=== PATIENT | male | born 1960 | race African-American/Black ===

== ENCOUNTER 2019-04-06 07:53 | Emergency (ER) | payer MEDICAID ==
[~2019-04-06] VITALS: Ht 193 cm; Wt 145.0 kg
[2019-04-06 07:59] VITALS: BP 147/86
[2019-04-06 08:57] LABS: BASOPHILS % 0.6 % (0.0-2.0); EOSINOPHILS % 5.6 % (0.0-5.0); HEMATOCRIT. 41.3 % (42.0-52.0); LYMPHOCYTES % 39.1 % (20.0-50.0); MEAN CORPUSCULAR HEMOGLOBIN 28.5 pg (28.0-32.0); MEAN CORPUSCULAR VOLUME 84.4 fL (80.0-94.0); MEAN PLATELET VOLUME 8.2 fl (7.4-10.4); MONOCYTES % 8.3 % (2.0-8.0); NEUTROPHILS % 46.4 % (40.0-76.0); PLATELET 233 x1000/uL (130-400); RED BLOOD CELL COUNT 4.89 mill/uL (4.7-6.1); RED CELL DISTRIBUTION WIDTH 15.8 % (11.6-14.6)
[2019-04-06 09:02] LABS: CHLORIDE 104 mEq/L (98-107)
== END 2019-04-06 09:24 | disposition home or self-care (01) ==
LOC: ER 07:53
DX: B35.4 Tinea corporis (principal); R05 Cough
CPT/HCPCS: 36415; 71045; 80048; 83880; 99284

== ENCOUNTER 2019-05-17 14:36 | Emergency (ER) | payer MEDICAID ==
[~2019-05-17] VITALS: Ht 193 cm; Wt 143.0 kg
[2019-05-17 14:52] VITALS: BP 139/86
[2019-05-18] MEDS ORDERED: LIDOCAINE HCL/PF 1% 10 MG/ML 5ML VIAL ONE (08:40)
[2019-05-18] MEDS ORDERED: ROCURONIUM BROMIDE 10MG/ML VIAL 5ML IV ONE (08:40)
[2019-05-18] MEDS ORDERED: PROPOFOL 200MG/20ML VIAL IV ONE (08:40)
[2019-05-18] MEDS ORDERED: FENTANYL CITRATE/PF 50MCG/ML 2ML VIAL ONE (08:44)
[2019-05-18] MEDS ORDERED: MIDAZOLAM HCL 2 MG/2 ML VIAL ONE (08:44)
[2019-05-18] MEDS ORDERED: HYDRALAZINE 20MG/ML VIAL ONE (08:47)
== END 2019-05-17 16:15 | disposition home or self-care (01) ==
LOC: ER 14:36
DX: L50.9 Urticaria, unspecified (principal); B35.6 Tinea cruris; I10 Essential (primary) hypertension; F10.20 Alcohol dependence, uncomplicated; Z98.890 Other specified postprocedural states; Z87.891 Personal history of nicotine dependence; Y90.9 Presence of alcohol in blood, level not specified
CPT/HCPCS: 99282

== ENCOUNTER 2019-10-20 17:38 | Emergency (ER) | payer MEDICAID ==
[~2019-10-20] VITALS: Ht 193 cm; Wt 155.0 kg
[2019-10-20 20:36] VITALS: BP 150/98
[2019-10-22] MEDS ORDERED: PRAZ1CAP2 PO (09:52)
[2019-10-22] MEDS ORDERED: METO1TAB26 PO (09:52)
== END 2019-10-21 00:23 | disposition left against medical advice (07) ==
LOC: ER 17:38
DX: Z53.21 Procedure and treatment not carried out due to patient leaving prior to being seen by health care provider (principal)

== ENCOUNTER 2019-10-21 06:24 | Emergency (ER) | payer MEDICAID ==
[~2019-10-21] VITALS: Ht 188 cm; Wt 116.0 kg
[2019-10-21] MEDS ORDERED: ONDANSETRON HCL 4MG/2ML INJ IV STA (06:43)
[2019-10-21] MEDS ORDERED: MORPHINE SULFATE 4 MG/ML CPJ (NOT FOR IM USE) IV STA (06:43)
[2019-10-21] MEDS ORDERED: SODIUM CHLORIDE 0.9% 1,000 ML IV ONE (06:43)
[2019-10-21 07:15] LABS: BASOPHILS % 0.6 % (0.0-2.0); HEMATOCRIT. 40.4 % (42.0-52.0); HEMOGLOBIN. 13.5 g/dL (14.0-18.0); LYMPHOCYTES % 34.8 % (20.0-50.0); MEAN CORPUSCULAR VOLUME 86.8 fL (80.0-94.0); MEAN PLATELET VOLUME 8.4 fl (7.4-10.4); MONOCYTES % 7.8 % (2.0-8.0); NEUTROPHILS % 52.8 % (40.0-76.0); PLATELET 295 x1000/uL (130-400); RED BLOOD CELL COUNT 4.66 mill/uL (4.7-6.1); RED CELL DISTRIBUTION WIDTH 14.7 % (11.6-14.6)
[2019-10-21 07:18] LABS: CHLORIDE 106 mEq/L (98-107)
[2019-10-21 07:20] LABS: PARTIAL THROMBOPLASTIN TIME 28.3 sec (23.4-31.0); PROTHROMBIN TIME 10.9 sec (9.6-11.0)
[2019-10-21 08:38] VITALS: BP 138/68
[2019-10-22] MEDS ORDERED: PRAZ1CAP2 PO (09:52)
[2019-10-22] MEDS ORDERED: METO1TAB26 PO (09:52)
== END 2019-10-21 08:40 | disposition home or self-care (01) ==
LOC: ER 06:24
DX: K62.5 Hemorrhage of anus and rectum (principal); K91.840 Postprocedural hemorrhage of a digestive system organ or structure following a digestive system procedure; K64.8 Other hemorrhoids; I10 Essential (primary) hypertension
CPT/HCPCS: 36415; 80053; 83690; 85025; 85610; 85730; 86850; 86900; 86901; 96374; 96375; 99284; J2270; J2405; J7030

== ENCOUNTER 2019-10-21 23:53 | Inpatient (IN) | payer MEDICAID ==
[~2019-10-21] VITALS: Ht 193 cm; Wt 147.4 kg
[2019-10-22] MEDS ORDERED: SODIUM CHLORIDE 0.9% 1,000 ML IV ONE (00:53)
[2019-10-22 01:19] LABS: BASOPHILS % 0.5 % (0.0-2.0); EOSINOPHILS % 2.8 % (0.0-5.0); HEMATOCRIT. 28.7 % (42.0-52.0); LYMPHOCYTES % 27.4 % (20.0-50.0); MEAN CORPUSCULAR HEMOGLOBIN 29.6 pg (28.0-32.0); MEAN CORPUSCULAR VOLUME 85.3 fL (80.0-94.0); MEAN PLATELET VOLUME 7.8 fl (7.4-10.4); MONOCYTES % 9.1 % (2.0-8.0); NEUTROPHILS % 60.2 % (40.0-76.0); PLATELET 261 x1000/uL (130-400); RED BLOOD CELL COUNT 3.37 mill/uL (4.7-6.1); RED CELL DISTRIBUTION WIDTH 14.5 % (11.6-14.6)
[2019-10-22 01:26] LABS: CHLORIDE 106 mEq/L (98-107)
[2019-10-22 01:27] LABS: PROTHROMBIN TIME 11.1 sec (9.6-11.0)
[2019-10-22] MEDS ORDERED: IOHEXOL-300 100 ML BOTTLE ONE (02:54)
[2019-10-22] MEDS ORDERED: ONDANSETRON HCL 4MG/2ML INJ IV PRN (08:15)
[2019-10-22] MEDS ORDERED: ACETAMINOPHEN 325MG TABLET PO PRN (08:15)
[2019-10-22 08:36] LABS: BASOPHILS % 0.7 % (0.0-2.0); HEMATOCRIT. 26.3 % (42.0-52.0); HEMOGLOBIN. 8.9 g/dL (14.0-18.0); LYMPHOCYTES % 28.6 % (20.0-50.0); MEAN CORPUSCULAR HEMOGLOBIN 29.2 pg (28.0-32.0); MEAN CORPUSCULAR VOLUME 86.2 fL (80.0-94.0); MEAN PLATELET VOLUME 8.1 fl (7.4-10.4); MONOCYTES % 8.4 % (2.0-8.0); NEUTROPHILS % 59.3 % (40.0-76.0); PLATELET 248 x1000/uL (130-400); RED BLOOD CELL COUNT 3.06 mill/uL (4.7-6.1); RED CELL DISTRIBUTION WIDTH 14.9 % (11.6-14.6)
[2019-10-22 08:37] LABS: CHLORIDE 109 mEq/L (98-107)
[2019-10-22 08:50] VITALS: BP 143/76
[2019-10-22] MEDS ORDERED: PROTAMINE SULFATE 10MG/ML VIAL 25ML IV ONE (09:00)
[2019-10-22] MEDS ORDERED: PRAZ1CAP2 PO (09:52)
[2019-10-22] MEDS ORDERED: METO1TAB26 PO (09:52)
[2019-10-22 12:00] VITALS: BP 107/65
[2019-10-22] MEDS ORDERED: LACTULOSE 20G/30ML UDC PO PRN (14:00)
[2019-10-22] MEDS: SODIUM CHLORIDE 0.9% 1,000 ML IV SCH ×2 (14:54→17:53)
[2019-10-22] MEDS: DOCUSATE SODIUM 250MG CAPSULE PO SCH ×2 (14:55→20:28)
[2019-10-22] MEDS: PANTOPRAZOLE SODIUM 40 MG/VIAL IV SCH (14:55)
[2019-10-22] MEDS: POLYETHYLENE GLYCOL 3350 (17GM) 1 DOSE PACK PO SCH (14:55)
[2019-10-22 16:00] VITALS: BP 119/81
[2019-10-22 20:00] VITALS: BP 134/71
[2019-10-23] VITALS: BP 96/69
[2019-10-23] MEDS: SODIUM CHLORIDE 0.9% 1,000 ML IV SCH ×2 (01:00→09:25)
[2019-10-23 04:00] VITALS: BP 144/80
[2019-10-23 04:51] LABS: CHLORIDE 109 mEq/L (98-107)
[2019-10-23 06:24] LABS: BASOPHILS % 0.5 % (0.0-2.0); EOSINOPHILS % 4.4 % (0.0-5.0); HEMATOCRIT. 24.1 % (42.0-52.0); HEMOGLOBIN. 8.1 g/dL (14.0-18.0); MEAN CORPUSCULAR VOLUME 86.1 fL (80.0-94.0); MEAN PLATELET VOLUME 8.5 fl (7.4-10.4); NEUTROPHILS % 54.1 % (40.0-76.0); PLATELET 242 x1000/uL (130-400); RED BLOOD CELL COUNT 2.81 mill/uL (4.7-6.1); RED CELL DISTRIBUTION WIDTH 14.8 % (11.6-14.6)
[2019-10-23] MEDS ORDERED: CLONIDINE 0.1MG TABLET PO PRN (07:45)
[2019-10-23 08:00] VITALS: BP 143/88
[2019-10-23] MEDS ORDERED: METOPROLOL PO SCH (09:00)
[2019-10-23] MEDS ORDERED: HYDROCHLOROTHIAZIDE 25MG TABLET PO SCH (09:00)
[2019-10-23] MEDS ORDERED: METOPROLOL TARTRATE 50MG TABLET PO SCH ×2 (09:00)
[2019-10-23] MEDS ORDERED: PRAZOSIN HCL 1MG CAPSULE PO SCH (09:00)
[2019-10-23] MEDS ORDERED: HYDROCHLOROTHIAZIDE PO SCH (09:00)
[2019-10-23] MEDS ORDERED: [UNRECOGNIZED DRUG - OTHER] PO SCH (09:00)
[2019-10-23] MEDS: DOCUSATE SODIUM 250MG CAPSULE PO SCH ×2 (09:16→17:21)
[2019-10-23] MEDS: POLYETHYLENE GLYCOL 3350 (17GM) 1 DOSE PACK PO SCH (09:16)
[2019-10-23] MEDS: PANTOPRAZOLE SODIUM 40 MG/VIAL IV SCH (09:16)
[2019-10-23 11:45] LABS: TOTAL IRON BINDING CAPACITY 200 ug/dL (250-450)
[2019-10-23 12:00] VITALS: BP 127/78
[2019-10-23] MEDS: FERROUS SULFATE 325MG TABLET PO SCH ×2 (13:52→17:21)
[2019-10-23 16:00] VITALS: BP 129/68
[2019-10-23 17:28] VITALS: BP 129/68
== END 2019-10-23 18:00 | disposition home or self-care (01) | DRG 253 ==
LOC: ER 23:53 → 6WST 10-22 03:23 → EDBEDREQTM 10-22 03:25 → EDBEDREQSVC 10-22 03:25 → EDBEDREQ 10-22 03:25 → ENRESERV 10-22 07:32
PROVIDERS: ADMIT Internal Medicine; ATTEND Internal Medicine
DX: K62.5 Hemorrhage of anus and rectum (principal); I10 Essential (primary) hypertension; D62 Acute posthemorrhagic anemia; K57.90 Diverticulosis of intestine, part unspecified, without perforation or abscess without bleeding; Z87.19 Personal history of other diseases of the digestive system; Z87.891 Personal history of nicotine dependence
CPT/HCPCS: 36415; 74177; 80048; 80053; 82728; 83540; 83550; 85025; 86850; 86900; 93005; C9113; J7030; Q9967

== ENCOUNTER 2020-10-29 07:41 | Emergency (ER) | payer MEDICAID ==
[~2020-10-29] VITALS: Ht 193 cm; Wt 145.0 kg
[~2020-10-29 07:41] MED LIST: METO1TAB26 PO; PRAZ1CAP2 PO
[2020-10-29] MEDS ORDERED: MORPHINE SULFATE 10 MG/ML CPJ IM ONE (08:15)
[2020-10-29] MEDS ORDERED: T3 PO (09:45)
[2020-10-29] MEDS ORDERED: IBUP-2029 MT (09:46)
[2020-10-29 09:48] VITALS: BP 105/67
== END 2020-10-29 10:00 | disposition home or self-care (01) ==
LOC: ER 07:41
DX: M25.561 Pain in right knee (principal); I10 Essential (primary) hypertension; Z98.890 Other specified postprocedural states; X50.1XXA Overexertion from prolonged static or awkward postures, initial encounter; Y93.89 Activity, other specified; Y92.488 Other paved roadways as the place of occurrence of the external cause
CPT/HCPCS: 73560; 96372; 99283; J2270; L1830; Z7610

== ENCOUNTER → 2020-12-13 | Outpatient (CLI) | payer MEDICAID ==
[~2020-12-13] MED LIST changes: +IBUP-2029 MT; +T3 PO
== END | disposition home or self-care (01) ==
LOC: LAB 09:43
PROVIDERS: ATTEND Neurological Surgery
DX: Z01.812 Encounter for preprocedural laboratory examination (principal); Z20.822 Contact with and (suspected) exposure to COVID-19
CPT/HCPCS: 87426

== ENCOUNTER → 2020-12-20 | Outpatient (CLI) | payer MEDICAID ==
[~2020-12-20] MED LIST changes: +ASPI-1406 PO; +DOCU-286 PO; +DOXY25TA61 PO; +HYDR25TA PO; +METO-539 PO; +SILD100T69 PO
== END | disposition home or self-care (01) ==
LOC: LAB 06:27
PROVIDERS: ATTEND Neurological Surgery
DX: Z01.812 Encounter for preprocedural laboratory examination (principal); Z20.822 Contact with and (suspected) exposure to COVID-19
CPT/HCPCS: 87426

== ENCOUNTER 2020-12-21 05:12 | Inpatient (IN) | payer MEDICAID ==
[~2020-12-21] VITALS: Ht 193 cm; Wt 155.6 kg
[2020-12-21] VITALS (40 sets, daily range): BP systolic 105–141; BP diastolic 57–84
[~2020-12-21 05:12] MED LIST changes: -ASPI-1406 PO; -DOCU-286 PO; -DOXY25TA61 PO; -HYDR25TA PO; -METO-539 PO; -SILD100T69 PO
[2020-12-21] MEDS ORDERED: SODIUM CHLORIDE 0.9% 1,000 ML IV SCH (06:30)
[2020-12-21] MEDS ORDERED: GENTAMICIN SULF 40MG/ML 2ML VIAL ONE (06:55)
[2020-12-21] MEDS ORDERED: THROMBIN (BOVINE) 5000 UNITS/VIAL TOP ONE (06:55)
[2020-12-21] MEDS ORDERED: ROCURONIUM BROMIDE 10MG/ML VIAL 5ML IV ONE (07:02)
[2020-12-21] MEDS ORDERED: FENTANYL CITRATE/PF 50MCG/ML 2ML VIAL ONE (07:02)
[2020-12-21] MEDS ORDERED: PROPOFOL 200MG/20ML VIAL IV ONE ×2 (07:03→08:58)
[2020-12-21] MEDS ORDERED: NEOSTIGMINE METHYLSULFATE 1MG/ML 10 ML VIAL ONE (07:03)
[2020-12-21] MEDS ORDERED: GLYCOPYRROLATE 0.2 MG/ML 2ML VIAL ONE ×2 (07:03→09:11)
[2020-12-21] MEDS ORDERED: MIDAZOLAM HCL 2 MG/2 ML VIAL ONE (07:03)
[2020-12-21] MEDS ORDERED: DEXAMETHASONE 4MG/ML 1ML VIAL ONE (07:23)
[2020-12-21] MEDS ORDERED: ONDANSETRON HCL 4MG/2ML INJ ONE (07:23)
[2020-12-21] MEDS ORDERED: HYDROMORPHONE HCL/PF 2MG/ML (OR) ONE (07:33)
[2020-12-21] MEDS ORDERED: SILD100T69 PO (08:17)
[2020-12-21] MEDS ORDERED: DOCU-286 PO (08:17)
[2020-12-21] MEDS ORDERED: ASPI-1406 PO (08:17)
[2020-12-21] MEDS ORDERED: METO-539 PO (08:17)
[2020-12-21] MEDS ORDERED: HYDR25TA PO (08:17)
[2020-12-21] MEDS ORDERED: DOXY25TA61 PO (08:17)
[2020-12-21 08:39] LABS: BG BASE EXCESS -0.1 mmol/L (-2.0-2.0); BG CARBOXYHEMOGLOBIN 0.6 % (0.5-1.5); BG DEOXYHEMOGLOBIN 0.4 % (0.0-5.0); BG FRACTION INSPIRED OXYGEN 100; BG HCO3 ACT 26.7 mmol/L (22.0-26.0); BG METHEMOGLOBIN 0.2 % (0.0-1.5); BG OXYGEN SATURATION 99.6 % (92.0-98.5); BG OXYHEMOGLOBIN 98.8 % (94.0-97.0); BG PCO2 52.1 mmHg (35.0-45.0); BG PH 7.327 (7.350-7.450); BG PO2 406.6 mmHg (75.0-100.0); BG SAMPLE SITE ALINE; BG TOTAL HEMOGLOBIN 14.1 g/dL (12.0-18.0); BG VENT MODE VENT - AC
[2020-12-21] MEDS ORDERED: ONDANSETRON HCL 4MG/2ML INJ IV PRN (08:45)
[2020-12-21] MEDS ORDERED: LABETALOL 5MG/ML SYR 20 MG/4 ML SYRINGE IV PRN (08:45)
[2020-12-21] MEDS ORDERED: MEPERIDINE HCL/PF 25MG/ML CPJ IV PRN (08:45)
[2020-12-21] MEDS ORDERED: MORPHINE SULFATE 4 MG/ML CPJ (NOT FOR IM USE) IV PRN (09:15)
[2020-12-21] MEDS: HYDROMORPHONE HCL/PF 2MG/ML CPJ IV PRN ×2 (09:35→09:56)
[2020-12-21] MEDS: DEXT 5%/LACTATED RINGERS 1,000 ML IV SCH ×2 (09:43→20:42)
[2020-12-21] MEDS ORDERED: NALOXONE INJ IV PRN (09:45)
[2020-12-21] MEDS ORDERED: ONDANSETRON INJ IV PRN (09:45)
[2020-12-21] MEDS: NICARDIPINE 100 MG in SODIUM CHLORIDE 0.9% 60 ML IV PRN ×2 (11:17→17:33)
[2020-12-21] MEDS: HYDROMORPHONE PCA 10MG/50ML IV PRN (12:08)
[2020-12-21] MEDS: DEXAMETHASONE 4MG/ML 1ML VIAL IV SCH ×2 (12:08→17:54)
[2020-12-21] MEDS ORDERED: CEFAZOLIN SODIUM 1000MG/VIAL IV SCH (14:00)
[2020-12-21 17:02] LABS: BASOPHILS % 0.3 % (0.0-2.0); HEMATOCRIT. 42.4 % (42.0-52.0); HEMOGLOBIN. 14.2 g/dL (14.0-18.0); LYMPHOCYTES % 8.8 % (20.0-50.0); MEAN CORPUSCULAR HEMOGLOBIN 29.1 pg (28.0-32.0); MEAN CORPUSCULAR VOLUME 87.3 fL (80.0-94.0); MEAN PLATELET VOLUME 8.3 fl (7.4-10.4); MONOCYTES % 1.4 % (2.0-8.0); NEUTROPHILS % 89.5 % (40.0-76.0); PLATELET 250 x1000/uL (130-400); RED BLOOD CELL COUNT 4.86 mill/uL (4.7-6.1); RED CELL DISTRIBUTION WIDTH 13.9 % (11.6-14.6)
[2020-12-21] MEDS: CEFAZOLIN 1000MG PREMIX 50 ML IV SCH (17:54)
[2020-12-21] MEDS: PANTOPRAZOLE SODIUM 40 MG/VIAL IV SCH (21:45)
[2020-12-22] VITALS (86 sets, daily range): BP systolic 55–146; BP diastolic 22–101
[2020-12-22] MEDS: CEFAZOLIN 1000MG PREMIX 50 ML IV SCH ×3 (01:31→17:17)
[2020-12-22] MEDS: DEXT 5%/LACTATED RINGERS 1,000 ML IV SCH ×2 (06:00→15:15)
[2020-12-22] MEDS: DEXAMETHASONE 4MG/ML 1ML VIAL IV SCH ×5 (06:19→23:22)
[2020-12-22] MEDS ORDERED: DIAZEPAM 5 MG TABLET PO NR (08:45)
[2020-12-22] MEDS: PANTOPRAZOLE SODIUM 40 MG/VIAL IV SCH (08:55)
[2020-12-22] MEDS: HYDROCHLOROTHIAZIDE 25MG TABLET PO SCH (08:56)
[2020-12-22] MEDS: METOPROLOL TARTRATE 50MG TABLET PO SCH (08:57)
[2020-12-22] MEDS: PRAZOSIN HCL 1MG CAPSULE PO SCH (09:00)
[2020-12-22] MEDS: DOCUSATE SODIUM 100MG CAPSULE PO SCH ×2 (11:15→17:00)
[2020-12-22] MEDS ORDERED: IPRATROPIUM/ALBUTEROL 0.5-3(2.5)MG/3ML NEB HHN PRN (11:45)
[2020-12-22 15:33] LABS: CLARITY URINE CLEAR (CLEAR); COLOR URINE YELLOW (YELLOW); KETONES URINE NEGATIVE (NEGATIVE); LEUKOCYTE ESTERASE URINE NEGATIVE (NEGATIVE); NITRITE URINE NEGATIVE (NEGATIVE); OCCULT BLOOD URINE 1+ (NEGATIVE); PH URINE 6.5 (4.5-8.0); PROTEIN URINE NEGATIVE (NEGATIVE); SPECIFIC GRAVITY URINE 1.008 (1.005-1.030); UROBILINOGEN URINE 0.2 E.U./dL (0.2-1.0)
[2020-12-22] MEDS ORDERED: DEXTROSE 50% WATER 50ML SYRINGE IV PRN (16:00)
[2020-12-22] MEDS: INSULIN LISPRO 100 UNITS/ML SUBCUT SCH ×2 (16:30→20:34)
[2020-12-22] MEDS ORDERED: INSULIN LISPRO 100 UNITS/ML SUBCUT SCH (16:30)
[2020-12-22] MEDS: BLOOD SUGAR DIAGNOSTIC STRIP TEST SCH ×2 (17:15→20:34)
[2020-12-23] VITALS (56 sets, daily range): BP systolic 114–176; BP diastolic 51–121
[2020-12-23] MEDS: DEXT 5%/LACTATED RINGERS 1,000 ML IV SCH ×3 (01:04→20:18)
[2020-12-23] MEDS: CEFAZOLIN 1000MG PREMIX 50 ML IV SCH ×2 (01:04→09:45)
[2020-12-23 04:49] LABS: HEMATOCRIT. 39.9 % (42.0-52.0); HEMOGLOBIN. 13.2 g/dL (14.0-18.0); MEAN CORPUSCULAR HEMOGLOBIN 28.5 pg (28.0-32.0); MEAN CORPUSCULAR VOLUME 86.3 fL (80.0-94.0); MEAN PLATELET VOLUME 8.8 fl (7.4-10.4); PLATELET 235 x1000/uL (130-400); RED BLOOD CELL COUNT 4.62 mill/uL (4.7-6.1); RED CELL DISTRIBUTION WIDTH 14.2 % (11.6-14.6)
[2020-12-23 04:57] LABS: CHLORIDE 104 mEq/L (98-107)
[2020-12-23] MEDS: BLOOD SUGAR DIAGNOSTIC STRIP TEST SCH ×4 (05:41→20:18)
[2020-12-23] MEDS: DEXAMETHASONE 4MG/ML 1ML VIAL IV SCH ×2 (05:41→11:52)
[2020-12-23] MEDS: INSULIN LISPRO 100 UNITS/ML SUBCUT SCH ×4 (06:15→20:17)
[2020-12-23] MEDS: PANTOPRAZOLE SODIUM 40 MG/VIAL IV SCH (08:26)
[2020-12-23] MEDS: HYDROCHLOROTHIAZIDE 25MG TABLET PO SCH (08:26)
[2020-12-23] MEDS: METOPROLOL TARTRATE 50MG TABLET PO SCH ×2 (08:26→17:30)
[2020-12-23] MEDS: DOCUSATE SODIUM 100MG CAPSULE PO SCH ×2 (08:26→17:29)
[2020-12-23] MEDS: PRAZOSIN HCL 1MG CAPSULE PO SCH (08:26)
[2020-12-23] MEDS: HYDROMORPHONE PCA 10MG/50ML IV PRN (09:36)
[2020-12-23 15:04] LABS: PLATELET ESTIMATE NORMAL
[2020-12-23] MEDS: AMLODIPINE 2.5MG TABLET PO SCH (20:18)
[2020-12-24] VITALS (34 sets, daily range): BP systolic 65–179; BP diastolic 54–107
[2020-12-24 05:09] LABS: BASOPHILS % 0.2 % (0.0-2.0); HEMATOCRIT. 42.4 % (42.0-52.0); HEMOGLOBIN. 13.9 g/dL (14.0-18.0); LYMPHOCYTES % 8.3 % (20.0-50.0); MEAN CORPUSCULAR HEMOGLOBIN 28.6 pg (28.0-32.0); MEAN CORPUSCULAR VOLUME 87.2 fL (80.0-94.0); MEAN PLATELET VOLUME 8.2 fl (7.4-10.4); MONOCYTES % 5.9 % (2.0-8.0); NEUTROPHILS % 85.6 % (40.0-76.0); PLATELET 218 x1000/uL (130-400); RED BLOOD CELL COUNT 4.86 mill/uL (4.7-6.1); RED CELL DISTRIBUTION WIDTH 13.9 % (11.6-14.6)
[2020-12-24] MEDS: METOPROLOL TARTRATE 50MG TABLET PO SCH ×2 (05:11→18:06)
[2020-12-24 05:18] LABS: CHLORIDE 105 mEq/L (98-107)
[2020-12-24] MEDS: INSULIN LISPRO 100 UNITS/ML SUBCUT SCH ×4 (06:04→20:52)
[2020-12-24] MEDS: PANTOPRAZOLE 40MG DR TABLET PO SCH (06:04)
[2020-12-24] MEDS: BLOOD SUGAR DIAGNOSTIC STRIP TEST SCH ×4 (06:04→20:52)
[2020-12-24] MEDS: HYDROCHLOROTHIAZIDE 25MG TABLET PO SCH (09:42)
[2020-12-24] MEDS: AMLODIPINE 2.5MG TABLET PO SCH (09:42)
[2020-12-24] MEDS: PRAZOSIN HCL 1MG CAPSULE PO SCH (09:42)
[2020-12-24] MEDS: DOCUSATE SODIUM 100MG CAPSULE PO SCH ×2 (09:42→16:41)
[2020-12-24] MEDS: HYDROCODONE/ACETAMINOPHEN 5/325MG TABLET PO PRN (11:04)
[2020-12-24] MEDS: BISACODYL 5MG TABLET PO PRN (18:05)
[2020-12-24] MEDS: AMLODIPINE 5MG TABLET PO SCH (20:52)
[2020-12-25] VITALS: BP 123/70
[2020-12-25 04:00] VITALS: BP 122/74
[2020-12-25 06:10] LABS: CHLORIDE 101 mEq/L (98-107)
[2020-12-25] MEDS: PANTOPRAZOLE 40MG DR TABLET PO SCH (06:33)
[2020-12-25] MEDS: METOPROLOL TARTRATE 50MG TABLET PO SCH ×2 (06:33→17:17)
[2020-12-25] MEDS: BLOOD SUGAR DIAGNOSTIC STRIP TEST SCH ×4 (06:35→21:50)
[2020-12-25 07:04] LABS: BASOPHILS % 0.1 % (0.0-2.0); EOSINOPHILS % 0.5 % (0.0-5.0); HEMATOCRIT. 42.9 % (42.0-52.0); HEMOGLOBIN. 14.2 g/dL (14.0-18.0); LYMPHOCYTES % 27.2 % (20.0-50.0); MEAN CORPUSCULAR HEMOGLOBIN 28.8 pg (28.0-32.0); MEAN CORPUSCULAR VOLUME 86.8 fL (80.0-94.0); MEAN PLATELET VOLUME 8.7 fl (7.4-10.4); MONOCYTES % 10.3 % (2.0-8.0); NEUTROPHILS % 61.9 % (40.0-76.0); PLATELET 231 x1000/uL (130-400); RED BLOOD CELL COUNT 4.94 mill/uL (4.7-6.1); RED CELL DISTRIBUTION WIDTH 13.6 % (11.6-14.6)
[2020-12-25] MEDS: INSULIN LISPRO 100 UNITS/ML SUBCUT SCH ×4 (07:17→21:00)
[2020-12-25 08:00] VITALS: BP 142/99
[2020-12-25] MEDS: DOCUSATE SODIUM 100MG CAPSULE PO SCH ×2 (08:45→17:16)
[2020-12-25] MEDS: AMLODIPINE 5MG TABLET PO SCH ×2 (08:45→21:51)
[2020-12-25] MEDS: HYDROCHLOROTHIAZIDE 25MG TABLET PO SCH (08:45)
[2020-12-25] MEDS: PRAZOSIN HCL 1MG CAPSULE PO SCH (09:00)
[2020-12-25] MEDS: HYDROCODONE/ACETAMINOPHEN 5/325MG TABLET PO PRN ×2 (10:26→21:50)
[2020-12-25 12:00] VITALS: BP 129/82
[2020-12-25 16:00] VITALS: BP 122/81
[2020-12-25] MEDS: BISACODYL 5MG TABLET PO PRN (17:16)
[2020-12-25 20:00] VITALS: BP 121/69
[2020-12-25] MEDS: FAMOTIDINE 20MG TABLET PO SCH (21:50)
[2020-12-26] VITALS: BP 112/63
[2020-12-26 04:00] VITALS: BP 126/84
[2020-12-26] MEDS: METOPROLOL TARTRATE 50MG TABLET PO SCH (05:23)
[2020-12-26] MEDS: BLOOD SUGAR DIAGNOSTIC STRIP TEST SCH (06:55)
[2020-12-26] MEDS: FAMOTIDINE 20MG TABLET PO SCH (06:55)
[2020-12-26] MEDS: INSULIN LISPRO 100 UNITS/ML SUBCUT SCH (07:20)
[2020-12-26 08:00] VITALS: BP 125/69
[2020-12-26] MEDS: AMLODIPINE 5MG TABLET PO SCH (08:54)
[2020-12-26] MEDS: HYDROCHLOROTHIAZIDE 25MG TABLET PO SCH (08:54)
[2020-12-26] MEDS: PRAZOSIN HCL 1MG CAPSULE PO SCH (08:55)
[2020-12-26] MEDS: DOCUSATE SODIUM 100MG CAPSULE PO SCH (08:55)
[2020-12-26 11:12] VITALS: BP 125/69
[2020-12-26] MEDS: HYDROCODONE/ACETAMINOPHEN 5/325MG TABLET PO PRN (11:22)
[2020-12-26 12:00] VITALS: BP 132/70
== END 2020-12-26 12:10 | disposition home health service (06) | DRG 321 ==
LOC: OR 05:12 → MICUSO 05:13 → 6EST 12-24 17:10
PROVIDERS: ADMIT Neurological Surgery; ATTEND Neurological Surgery
PROC: 0RG20J1 Fusion of 2 or more Cervical Vertebral Joints with Synthetic Substitute, Posterior Approach, Posterior Column, Open Approach (ICD-10-PCS; principal; 2020-12-21)
PROC: 00NW0ZZ Release Cervical Spinal Cord, Open Approach (ICD-10-PCS; 2020-12-21)
PROC: 4A11X4G Monitoring of Peripheral Nervous Electrical Activity, Intraoperative, External Approach (ICD-10-PCS; 2020-12-21)
DX: M48.02 Spinal stenosis, cervical region (principal); N17.0 Acute kidney failure with tubular necrosis; G82.50 Quadriplegia, unspecified; E66.01 Morbid (severe) obesity due to excess calories; E11.65 Type 2 diabetes mellitus with hyperglycemia; G95.20 Unspecified cord compression; I10 Essential (primary) hypertension; M54.12 Radiculopathy, cervical region; J44.9 Chronic obstructive pulmonary disease, unspecified; S83.519A Sprain of anterior cruciate ligament of unspecified knee, initial encounter; K59.00 Constipation, unspecified; Z79.899 Other long term (current) drug therapy; Z68.41 Body mass index [BMI] 40.0-44.9, adult; Z87.891 Personal history of nicotine dependence; X58.XXXA Exposure to other specified factors, initial encounter; Y93.89 Activity, other specified; Y92.89 Other specified places as the place of occurrence of the external cause; Y99.8 Other external cause status; R65.10 Systemic inflammatory response syndrome (SIRS) of non-infectious origin without acute organ dysfunction
CPT/HCPCS: 36415; 36600; 71045; 72040; 72141; 76000; 80048; 81003; 82375; 82805; 82962; 83036; 85025; 86850; 86900; 88311; 93005; 93306; 95925; 95926; 95928; 95929; 97116; 97162; 97166; 97530; C1713; C9113; J0690; J1100; J1170; J1580; J1815; J2250; J2270; J2405; J2704; J2710; J3010; J3490; J7050; J7121; L0172

== ENCOUNTER 2022-07-21 19:19 | Emergency (ER) | payer MEDICAID ==
[~2022-07-21] VITALS: Ht 190.5 cm; Wt 160.0 kg
[~2022-07-21 19:19] MED LIST changes: +ASPI-1406 PO; +DOCU-286 PO; +DOXY25TA61 PO; +HYDR25TA PO; -IBUP-2029 MT; +METO-539 PO; -METO1TAB26 PO; +SILD100T69 PO; -T3 PO
[2022-07-21 19:36] VITALS: BP 128/73
[2022-07-21 20:18] LABS: HEMATOCRIT. 39.6 % (42.0-52.0); HEMOGLOBIN. 13.8 g/dL (14.0-18.0); MEAN CORPUSCULAR VOLUME 86.1 fL (80.0-94.0); MEAN PLATELET VOLUME 8.2 fl (7.4-10.4); PLATELET 192 x1000/uL (130-400); RED CELL DISTRIBUTION WIDTH 13.9 % (11.6-14.6)
[2022-07-21 20:27] LABS: CHLORIDE 103 mEq/L (98-107)
[2022-07-21] MEDS ORDERED: NIRM1TAB PO (21:08)
[2022-07-21] MEDS ORDERED: TOPUD PO (21:08)
[2022-07-21 21:29] LABS: BG BASE EXCESS 3.7 mmol/L (-2.0-2.0); BG CARBOXYHEMOGLOBIN 1.1 % (0.5-1.5); BG DEOXYHEMOGLOBIN 5.3 % (0.0-5.0); BG FRACTION INSPIRED OXYGEN 21; BG HCO3 ACT 27.5 mmol/L (22.0-26.0); BG METHEMOGLOBIN 0.3 % (0.0-1.5); BG OXYGEN SATURATION 94.6 % (92.0-98.5); BG OXYHEMOGLOBIN 93.3 % (94.0-97.0); BG PCO2 38.8 mmHg (35.0-45.0); BG PH 7.469 (7.350-7.450); BG PO2 69.5 mmHg (75.0-100.0); BG SAMPLE SITE RIGHT BRACHIAL; BG TOTAL HEMOGLOBIN 14.4 g/dL (12.0-18.0); BG VENT MODE ROOM AIR
[2022-07-21 22:53] LABS: PLATELET ESTIMATE NORMAL
== END 2022-07-21 21:40 | disposition home or self-care (01) ==
LOC: ER 19:19
DX: U07.1 COVID-19 (principal); I10 Essential (primary) hypertension; Z79.82 Long term (current) use of aspirin
CPT/HCPCS: 36415; 36600; 71045; 80053; 82375; 82805; 85025; 87420; 87426; 87804; 93005; 99285; C9803; Z7610

== ENCOUNTER 2024-02-14 12:20 | Emergency (ER) | payer SELFPAY ==
[~2024-02-14] VITALS: Ht 193 cm; Wt 142.9 kg
[~2024-02-14 12:20] MED LIST changes: +NIRM1TAB PO; +TOPUD PO
[2024-02-14 12:45] VITALS: O2SAT 96
[2024-02-14 13:04] VITALS: TEMP 101.3
[2024-02-14] MEDS: ACETAMINOPHEN 325MG TABLET PO NR (13:04)
[2024-02-14] MEDS: SODIUM CHLORIDE 0.9% 1000ML BAG (SEPSIS BOLUS) IV ONE (13:15)
[2024-02-14 13:46] LABS: BASOPHILS % 0.7 % (0.0-2.0); EOSINOPHILS % 0.9 % (0.0-5.0); HEMOGLOBIN. 14.4 g/dL (14.0-18.0); LYMPHOCYTES % 11.3 % (20.0-50.0); MEAN CORPUSCULAR HEMOGLOBIN 28.8 pg (28.0-32.0); MEAN CORPUSCULAR HGB CONC 33.5 g/dL (31.0-37.0); MEAN PLATELET VOLUME 8.4 fl (7.4-10.4); MONOCYTES % 11.3 % (2.0-8.0); NEUTROPHILS % 75.8 % (40.0-76.0); PLATELET 230 x1000/uL (130-400); WHITE BLOOD COUNT 6.9 x1000/uL (4.5-11.0)
[2024-02-14 13:55] LABS: CHLORIDE 101 mEq/L (98-107); POTASSIUM 3.6 mEq/L (3.5-5.1); SODIUM 135 mEq/L (136-145)
[2024-02-14 13:56] LABS: CALCIUM 9.1 mg/dL (8.7-10.4); CARBON DIOXIDE 28 mEq/L (21-32)
[2024-02-14 13:58] LABS: PROTHROMBIN TIME 11.2 sec (9.6-11.0)
[2024-02-14 14:01] LABS: CREATININE 1.4 mg/dL (0.6-1.3); GLUCOSE 115 mg/dL (70-105); UREA NITROGEN BLOOD 9 mg/dL (9-23)
[2024-02-14 14:02] LABS: TROPONIN I HIGH SENSITIVITY 5 ng/L (3.0-53)
[2024-02-14] MEDS: CEFTRIAXONE 1GM/50ML 50 ML IV ONE (14:48)
[2024-02-14] MEDS ORDERED: AZIT250T12 MT (15:30)
[2024-02-14] MEDS ORDERED: DEXT15LI MT (15:31)
[2024-02-14 15:56] VITALS: BP 131/87; PULSE 81; RESP 18
== END 2024-02-14 15:54 | disposition home or self-care (01) ==
LOC: ER 12:20
DX: A41.9 Sepsis, unspecified organism (principal); R50.9 Fever, unspecified; R05.9 Cough, unspecified; I10 Essential (primary) hypertension; Z79.899 Other long term (current) drug therapy
CPT/HCPCS: 99285; 96374; 96361; 71045; 80048; 83605; 85025; 85610; 87040; 84484; 36415; 84145; 93005; J0696; J7030

== ENCOUNTER 2024-08-13 04:08 | Emergency (ER) | payer OTHER ==
[~2024-08-13] VITALS: Ht 193 cm; Wt 145.5 kg
[~2024-08-13 04:08] MED LIST changes: +AZIT250T12 MT; +DEXT15LI31 MT
[2024-08-13 04:16] VITALS: BP 154/76; TEMP 37.16964; O2SAT 97
[2024-08-13 05:02] LABS: BASOPHILS % 0.5 % (0.0-2.0); HEMATOCRIT. 40.9 % (42.0-52.0); HEMOGLOBIN. 13.6 g/dL (14.0-18.0); LYMPHOCYTES % 11.8 % (20.0-50.0); MEAN CORPUSCULAR HEMOGLOBIN 28.9 pg (28.0-32.0); MEAN CORPUSCULAR HGB CONC 33.3 g/dL (31.0-37.0); MEAN PLATELET VOLUME 8.1 fl (7.4-10.4); MONOCYTES % 16.2 % (2.0-8.0); NEUTROPHILS % 69.5 % (40.0-76.0); PLATELET 214 x1000/uL (130-400); RED CELL DISTRIBUTION WIDTH 14.5 % (11.6-14.6); WHITE BLOOD COUNT 5.6 x1000/uL (4.5-11.0)
[2024-08-13 05:15] LABS: DIFFERENTIAL COMMENT 1
[2024-08-13 05:23] LABS: CHLORIDE 103 mEq/L (98-107); POTASSIUM 3.7 mEq/L (3.5-5.1); SODIUM 138 mEq/L (136-145)
[2024-08-13 05:24] LABS: CARBON DIOXIDE 27 mEq/L (21-32)
[2024-08-13 05:29] LABS: CREATININE 1.5 mg/dL (0.6-1.3); GLUCOSE 117 mg/dL (70-105); UREA NITROGEN BLOOD 13 mg/dL (9-23)
[2024-08-13 05:30] LABS: TROPONIN I HIGH SENSITIVITY 4 ng/L (3.0-53)
[2024-08-13] MEDS: ALBUTEROL (0.083%) 2.5MG/3ML NEB HHN STA (05:54)
[2024-08-13 05:58] VITALS: PULSE 79; RESP 22; O2SAT 95
[2024-08-13] MEDS: FLUTICASONE PROPIONATE 50MCG/SPRAY BOTTLE BOTHNSTRLS STA (06:38)
[2024-08-13] MEDS ORDERED: ALBU18HF2 IH (07:15)
== END 2024-08-13 08:47 | disposition home or self-care (01) ==
LOC: ER 04:08
DX: R05.9 Cough, unspecified (principal); I10 Essential (primary) hypertension; Z79.899 Other long term (current) drug therapy; Z79.82 Long term (current) use of aspirin; Z98.890 Other specified postprocedural states
CPT/HCPCS: 80048; 85025; 84484; 36415; 71045; 94640; 93005; 99285; Z7610 ×3